=== PATIENT | female | born 1960 | race Caucasian/White ===

== ENCOUNTER → 2020-02-07 13:05 | Outpatient (CLI) | payer OTHER, SELFPAY ==
[2020-02-07 14:39] LABS: Add Manual Diff / Slide Review NO; Basophils Absolute Auto 0 /uL (0-100); Basophils Percent Auto 0.6 % (0-2); Eosinophils Absolute Auto 100 /uL (0-450); Eosinophils Percent Auto 1.9 % (2-4); Hemoglobin 15.3 g/dL (12.0-16.0); Lymphocytes Absolute Auto 1800 /uL (1100-4500); Lymphocytes Percent Auto 37.4 % (25-40); Mean Corpuscular HGB Conc 33.3 % (30-36); Mean Corpuscular Hemoglobin 32.3 PG (26-34); Mean Corpuscular Volume 96.9 fL (80-100); Monocytes Absolute Auto 500 /uL (0-900); Monocytes Percent Auto 9.8 % (3-14); Neutrophils Absolute Auto 2400 /uL (1500-7000); Neutrophils Percent Auto 50.3 % (50-75); Platelet Count 203 X10^3/uL (150-400); Red Blood Cell Count 4.74 X10^6/uL (4.0-5.2); Red Cell Distribution Width 12.4 % (11.6-14.8); White Blood Cell Count 4.8 X10^3/uL (4.5-11.0)
[2020-02-07 14:50] LABS: Blood Urea Nitrogen 10 mg/dL (7-17); Calcium 9.3 mg/dL (8.4-10.2); Carbon Dioxide 36 mmol/L (22-32); Chloride 104 mmol/L (98-107); Estimated Glomerular Filt Rate > 60.0 mL/min (>60); Glucose 101 mg/dL (70-100); HEMOLYSIS < 15 (0-50); Potassium 4.9 mmol/L (3.4-5.1); Sodium 141 mmol/L (137-145)
== END ==
PROVIDERS: Referring Provider Orthopaedic Surgery; Visit Provider Orthopaedic Surgery
DX: Z01.812 Encounter for preprocedural laboratory examination (principal); Z01.818 Encounter for other preprocedural examination
CPT/HCPCS: 36415; 80048; 85025; 93005; 93010

== ENCOUNTER → 2020-02-17 13:05 | Outpatient (CLI) | payer OTHER, SELFPAY ==
[2020-02-17 16:23] LABS: COVID19 -Nasal RAPID POSITIVE (Negative)
== END ==
PROVIDERS: PCP Family Medicine; Visit Provider Nurse Practitioner
DX: U07.1 COVID-19 (principal)
CPT/HCPCS: 87635

== ENCOUNTER → 2020-03-09 11:03 | Outpatient (CLI) | payer OTHER, SELFPAY ==
[2020-03-09 13:08] LABS: COVID19 -Nasal RAPID Negative (Negative)
== END ==
PROVIDERS: PCP Family Medicine; Visit Provider Physician Assistant
DX: Z20.822 Contact with and (suspected) exposure to COVID-19 (principal)
CPT/HCPCS: 87635

== ENCOUNTER 2020-03-10 05:53 | Inpatient (IN) | payer OTHER, SELFPAY ==
[2020-02-11 13:41] VITALS: BMI 33.3
[2020-03-10] VITALS (17 sets, daily range): BP systolic 93–154; BP diastolic 49–120; PULSE 69–94; RESP 8–18; TEMP 36.1–36.8; O2SAT 92–97; BMI 35.7
[2020-03-10] MEDS: LACTATED RINGERS 1,000 ML 42 ML IV ×2 (07:14→11:08)
--- NOTE | 2020-03-10 07:23 | PM.PREOP ---
Pre-operative Note COVID-19 COVID-19 status: Negative Result date/Date tested (Pos, Neg/Pending): 03/09/20 Interval Note History & Physical reviewed/Exam performed by Physician: Yes Changes to H&P: No
[2020-03-10] MEDS: CEFAZOLIN 2 GM/100 ML FROZ.PIGGY IV ×3 (07:47→23:40)
--- NOTE | 2020-03-10 08:00 | DI.RAD.S_ITS ---
PROCEDURE: XR LUMBAR SPINE 2-3V INDICATIONS: L4-5 TLIF TECHNIQUE: AP and lateral intraoperative fluoroscopic views of the lumbar spine were acquired. COMPARISON: [facility], MR, MR LUMBAR SPINE WITHOUT CONTRAST, 01/07/2020, 10:58. FINDINGS: AP and lateral intraoperative fluoroscopic images of the lumbar spine were acquired demonstrating postoperative changes from interval posterior spinal fusion of L4 and L5 using bilateral pedicular screws and paraspinal rods fixation. Status post L4-5 discectomy and placement of interbody disc prosthesis. IMPRESSION: Intraoperative fluoroscopic image of the lumbar spine status post discectomy and fusion at L4-5. No gross hardware complications. Dictated by: Sarthak Can M.D. on 03/10/2020 at 9:50 Approved by: Sarthak Can M.D. on 03/10/2020 at 9:54
[2020-03-10] MEDS: THROMBIN (RECOMBINANT) 5,000 UNIT VIAL 5000 UNIT TOP (08:20)
[2020-03-10] MEDS: SODIUM CHLORIDE 0.9% 1,000 ML, GENTAMICIN 80 MG IRR (08:20)
[2020-03-10] MEDS: VANCOMYCIN 1,000 MG VIAL 1000 MG TOP (08:20)
[2020-03-10] MEDS: BUPIVACAINE 0.5% (PF) 4 ML, MORPHINE-PF 4 MG, BUTORPHANOL 1 MG, fentaNYL 100 MCG INJ (08:22)
--- NOTE | 2020-03-10 08:33 | SUR.OPER ---
Prone on spine table, head in foam head support, padded chest and pelvic supports, gel pad at knees, lower legs supported by pillows; nipples, genitalia and toes free of pressure, arms secured on foam padded arm boards at <90 degrees abduction. Tape over blanket at thigh secured to table.
--- NOTE | 2020-03-10 10:09 | P.OP_ITS ---
Operative Date/Time/Diagnoses Date of procedure: 03/10/20 Time of procedure: 10:09 Pre-op diagnosis: Lumbar stenosis with radiculopathy Lumbar scoliosis Post-op diagnosis: same Procedure & Clinicians Procedure: L3-4, L4-5 laminectomies L4-5 TLIF (posterior/posterior interbody fusion) with cage L4, L5 screws Iliac crest bone graft aspirate Use of microscope Placement of epidural catheter Same procedure as scheduled: Yes Indications: [age] year old female with intractable pain from lumbar stenosis.They had failed conservative management and requested operative intervention. Risks and benefits of surgery were discussed and appropriate consents were obtained. Surgeon: Dallas Riggs Window Trimmer: Madonna Pabon Anesthesia Type: General Operative Notes Findings: None Closure Type: primary Specimen(s): none sent Prosthetic devices, grafts, tissues, transplants, or devices: NuVasive MAS Rel ine screws Globus Rise cage Applied: catheter Estimated Blood Loss (mL): 50 Procedure in detail: The patient was brought to the operating room and intubated on the table. A time-out was performed. They were then rolled over to the well- padded Dalton table in the prone position. Preoperative antibiotics were given. The back was prepped and draped in the standard sterile fashion. Using fluoroscopy, a 4 cm longitudinal incision was made to the left of the midline. We used Bovie to come down to and split the lumbodorsal fascia. Using fluoroscopy and monitoring, we then percutaneously placed Jamshidi needles down the pedicles of L4 and L5 on the left side. These were changed out to guidewires and then we tapped and then placed the NuVasive MAS Reline screw shanks. We then opened up the retractors and used Bovie to clear up the posterolateral gutter as well as medially along the lamina to the spinous processes. A bur was used to decorticate the transverse processes. We brought in the microscope. Using a combination of bur and Kerrison rongeurs, a laminectomy was performed from the left side. We cleared over past the midline and carefully depressed the dura until we were able to decompress the opposite side. We cleared out the neural foramen. This completed the laminectomy at L4-5. This was separate and distinct from the TLIF approach as we were decompressing the canal with the traversing L5 and S1 roots as well as the exiting L4 root in the foramen. We then began the TLIF prep. The remainder of the facetectomy was performed on this side at L4-5. We carefully cleaned up the remainder of the foramen until we could easily retract the exiting root as well as clearing medially below the dura and expose the disc space. The disc was prepped with bipolar and then an annulotomy was performed. We performed a diskectomy using a combination of paddles, yuly, pituitaries, and curettes. We distracted the disc using a paddle and locked the retractor in an open position. We then filled the disc space with Osteocel bone graft. We then placed the globus rise cage under fluo roscopy and then filled this in with more bone graft. The distraction on the retractor was released to compress down. This completed the posterior interbody fusion portion of the TLIF at L4-5. We then rotated the retractors and exposed the L3-4 level. We cleared out the lamina. Using bur and Kerrison rongeur, a left-sided laminectomy was performed at L3-4. This was primarily epidural lipomatosis. We cleared out the central canal with all of the exiting L4 through S1 roots as well as cleared up the L3-4 foramen. An epidural catheter was then prepped with 4 mL of 0.5% Marcaine, 1 mg Stadol, 4 mg Duramorph, and 100 mcg of fentanyl and placed in the spinal canal by carefully depressing the dura and advancing it 6 cm cephalad under the remaining lamina without resistance. We then placed the screw heads, rupla, and locked down the set screws. The wound was copiously irrigated. A small stab incision was made over the PSIS. We used a Jamshidi needle to aspirate several mL of bone marrow from the pelvis. This was mixed with the remaining Osteocel and combined with all of the locally harvested bone graft and placed in the posterolateral gutter for the posterior fusion of the TLIF at L4- 5. The muscle fascia was closed. The epidural catheter was then injected without resistance and the catheter was pulled. We then went to the opposite side. Again using fluoroscopy, a 3 cm incision was made and Bovie was used to come down to split the fascia. Using neural monitoring and fluoroscopy, Jamshidi needles were advanced down the pedicles of L4 and L5 on the right side. These were switched over guidewires, tapped, and screws placed. We then placed a rupal and locked the set screws on this side. The wound was irrigated. The fascia was closed. Vancomycin powder was placed in the wounds. The superficial and skin were closed. A sterile dressing was placed. The patient was then rolled over extubated and brought to recovery room without complications. Complications: none Post-operative Condition: stable Disposition: PACU Plan for aftercare: Inpatient. Up with physical therapy.
[2020-03-10] MEDS: LORazepam 2 MG/ML INJ 0.25 MG IV (10:35)
[2020-03-10] MEDS: hydrOXYzine 50 MG/ML INJ 25 MG IM (10:37)
[2020-03-10] MEDS: HYDROMORPHONE 2 MG INJ IV ×3 (10:43→11:02)
[2020-03-10] MEDS: OXYCODONE/ACETAMINOPHEN 5/325 TABLET 1 TAB PO (11:48)
[2020-03-10] MEDS: CELECOXIB 200 MG CAPSULE 400 MG PO (12:19)
[2020-03-10] MEDS: HYDROMORPHONE 0.5 MG INJ IV ×6 (12:20→23:41)
[2020-03-10] MEDS: LACTATED RINGERS 1,000 ML 125 ML IV ×2 (12:22→21:11)
[2020-03-10] MEDS: HYDROCODONE/ACET 5/325 TABLET 2 TAB PO (12:32)
[2020-03-10] MEDS: hydrOXYzine pamoate 25 MG CAPSULE PO ×2 (12:33→15:50)
--- NOTE | 2020-03-10 13:56 | PT.IPTN ---
Current Diagnoses Other forms of scoliosis, lumbar region (03/10/20) Spinal stenosis, lumbar region with neurogenic claudication (03/10/20) Surgery Performed Operation Date: 03/10/20 07:45 Actual Procedures p L34, L45 Laminectomy, L45 instrumented fusion w/bone graft - Dallas Riggs MD Physical Therapy Treatment Note M3 PT-IP Subjective Start: 03/10/20 14:29 Freq: NEEDED Status: Active Protocol: Document 03/10/20 13:56 AB (Rec: 03/10/20 14:32 AB [id number]) Subjective Physical Therapy Visit Type Type Patient Refusal Notes Checked on pt but pt refused PT with c/o increase back pain . stated that she is wanting to rest since she just had surgery. PLOF and home environment info obtained from pt. will f/u tomorrow.
--- NOTE | 2020-03-10 15:09 | PC.NURSE ---
Pt reports severe pain to back, repositioning frequently, IV and PO pain meds; recommend changing to [place] bed; c/m/s to BLLEs present with improved mild numbness from prior to back surgery; RA=97%, IS 1500; Coversite drsg to lower back and gauze/tegaderm to iliac crest c/d/i; Pantoja draining to gravity; pt using call light, as needed
[2020-03-10] MEDS: OXYCODONE IR 10 MG TABLET PO ×2 (16:28→22:38)
[2020-03-10] MEDS: DOCUSATE 100 MG CAPSULE PO (21:07)
[2020-03-10] MEDS: GABAPENTIN 300 MG CAPSULE PO (21:07)
[2020-03-10] MEDS: CELECOXIB 200 MG CAPSULE PO (21:08)
[2020-03-10] MEDS: SENNOSIDES 8.6 MG TABLET 17.2 MG PO (21:08)
--- NOTE | 2020-03-10 21:19 | PC.NURSE ---
I was notified by the [facility] [place] [place] that the patient in 218 was upset and requesting to speak to the Director Of Consulting Services. I went down to the patients room, she appeared upset, RN Leydi was administering medication. Following which, I introduced myself. The patient was anxious and almost tearful. She stated that she did not want to speak to me, you work on this shift, I will wait and talk to someone tomorrow. I acknowledge that she appeared upset, and asked if there was anything I could do to make her more comfortable. The patient states I am better than I have been the last half hour. She again stated that she would speak to someone tomorrow. I attempted an additional time in the evening to speak to the patient, but on follow up, she was on the phone. The third time I check in with the patient she was agreeable to speak with me. She states that her IV was beeping, she put on her call light and approximately 10 minutes passed before her light was answered. The IV pump was re-initiated. The patient states that 10 minutes later it was beeping again. She says no one came to answer her light, she states that she began calling out and could hear people in the hallway, but no one responded. The patient states that she had requested her door to be closed and four all bed rails to be in the raised position. She states she then tried to move around in bed, in an effort to reach her phone, she called the bending press operator and was transferred to the main nurses station asking for help. This had been the message I received from the [facility] [place] [place], and the patient was clearly upset by the events. I made an effort to reassure the patient. I discussed with her our effort to provide excellent patient care and that the events she described were not to an acceptable level. The patient was fearful that now that she had spoken with me, the girls will be afraid to come back. I reassured her this was not the case. I assisted her with comfort measures. Confirmed that she did wish to continue to have all bed rails in place and the door closed. She stated that she did. Discussed these events and patient concerns with staff.
[2020-03-11] VITALS (9 sets, daily range): BP systolic 97–120; BP diastolic 52–75; PULSE 72–94; RESP 16–17; TEMP 36.1–36.7; O2SAT 93–98
[2020-03-11] MEDS: HYDROCODONE/ACET 5/325 TABLET 2 TAB PO ×2 (01:23→05:31)
[2020-03-11] MEDS: LEVOTHYROXINE 100 MCG TABLET PO (05:31)
[2020-03-11] MEDS: LACTATED RINGERS 1,000 ML 125 ML IV (05:33)
[2020-03-11 05:38] LABS: Hematocrit 34.6 % (36-46); Hemoglobin 11.5 g/dL (12.0-16.0)
--- NOTE | 2020-03-11 07:37 | PM.PNPO.1 ---
Subjective Subjective Date Patient Seen: 03/11/20 Time Patient Seen: 07:37 Interval history: Rough night with pain. She required oral as well as IV supplementation for pain control. She did get out of bed with physical therapy yesterday. Exam Vital Signs (past 8 hours): - 03/11/20 00:00 03/11/20 06:00 Temperature 97.0 F L 97.0 F L Pulse Rate 94 H 87 Respiratory Rate 16 16 Blood Pressure 102/52 L 120/70 Pulse Oximetry 96 96 Oxygen Delivery Method Room Air Oxygen Flow Rate 0 Const Orientation: alert and oriented x3 Back/Spine/Pelvis Other: CDI. 5/5 motor both lower extremities Objective Labs Result Diagrams: 03/11/20 05:24 Labs: Laboratory Results - last 24 hr 03/11/20 05:24 Hgb 11.5 L Hct 34.6 L PFSH Medical History (Updated 02/11/20 @ 14:16 by Tanya Nino RN) Anxiety Arthritis Brain aneurysm (04/2013) Diverticulitis (~2001) Diverticulosis Easy bruisability HLD (hyperlipidemia) HTN (hypertension) Hypothyroid Lumbar stenosis with neurogenic claudication Scoliosis Surgical History (Updated 02/11/20 @ 14:17 by Tanya Nino RN) History of esophagogastroduodenoscopy (EGD) History of hysterectomy History of surgery (04/2013) Hx of appendectomy Hx of breast biopsy Social History household members: spouse Smoking Status: Former smoker alcohol intake: current Assessment & Plan Post-op Postoperative Procedures: Procedures Operation Date: 03/10/20 07:45 Actual Procedures Side Surgeon p L34, L45 Laminectomy, L45 instrumented fusion w/bone graft Dallas Riggs MD Pain control issues will be slowing her down but will continue mobilize her with physical therapy. I anticipate her staying 1-2 more days before she is independent enough to go home. Quality VTE Deep Vein Thrombosis/Pulmonary Embolism Present on Admission: No
[2020-03-11] MEDS: ATORVASTATIN 20 MG TABLET 40 MG PO (08:45)
[2020-03-11] MEDS: METOPROLOL ER 50 MG TABLET 200 MG PO (08:45)
[2020-03-11] MEDS: CELECOXIB 200 MG CAPSULE PO ×2 (08:45→21:58)
[2020-03-11] MEDS: ASPIRIN EC 81 MG TABLET PO (08:45)
[2020-03-11] MEDS: DOCUSATE 100 MG CAPSULE PO ×2 (08:45→21:58)
[2020-03-11] MEDS: lisinopriL 10 MG TABLET PO (08:45)
[2020-03-11] MEDS: OXYCODONE IR 10 MG TABLET PO ×5 (09:10→21:57)
--- NOTE | 2020-03-11 10:45 | PT.IIE ---
Current Diagnoses Other forms of scoliosis, lumbar region (03/10/20) Spinal stenosis, lumbar region with neurogenic claudication (03/10/20) Surgery Performed Operation Date: 03/10/20 07:45 Actual Procedures p L34, L45 Laminectomy, L45 instrumented fusion w/bone graft - Dallas Riggs MD Surgical History (Last Updated 02/11/20 @ 14:17 by Tanya Nino, RN) History of esophagogastroduodenoscopy (EGD) History of hysterectomy History of surgery (04/2013) Hx of appendectomy Hx of breast biopsy Medical History (Last Updated 02/11/20 @ 14:16 by Tanya Nino RN) Anxiety Arthritis Brain aneurysm (04/2013) Diverticulitis (~2001) Diverticulosis Easy bruisability HLD (hyperlipidemia) HTN (hypertension) Hypothyroid Lumbar stenosis with neurogenic claudication Scoliosis Physical Therapy Inpatient Evaluation/Re-Eval M1 PT/OT-IP Prior Functional Status Start: 03/10/20 14:29 Freq: NEEDED Status: Active Protocol: Document 03/11/20 10:45 AB (Rec: 03/11/20 12:06 AB [email or web address]) Medical Review Prior Functional Status Medical History Reviewed Yes Communication able to make needs known Mobility and Gait pt stated that she is independent with all mobilities and ambulation without AD Social History Household Members spouse Living Arrangements House Number of Floors (Floors) One Floor Number of Stairs To Enter/Railing? 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 [facility] stated that her spouse is a PT aide M2 PT-IP Current Condition Start: 03/10/20 14:29 Freq: NEEDED Status: Active Protocol: Document 03/11/20 10:45 AB (Rec: 03/11/20 12:06 AB [email or web address]) Physical Therapy Current Condition Current Condition Evaluation Date 03/11/20 Treatment Diagnosis s/p L4-5 TLIF; L3-4 lami; difficulty in walking Onset Date 03/10/20 Precautions Lumbar Precautions Log Roll,No Twisting,Limit Bending,Lifting Restriction of 10 lbs,Gait Belt above Incisional Area M3 PT-IP Subjective Start: 03/10/20 14:29 Freq: NEEDED Status: Active Protocol: Document 03/11/20 10:45 AB (Rec: 03/11/20 12:06 AB [email or web address]) Subjective Physical Therapy Visit Type Type Initial Evaluation Visit Start Time 10:45 Visit Stop Time 11:13 Total Visit Minutes 28 Number of SINTERING PLANT SUPERVISOR Visits 0 Physical Therapy Visit Comments Patient Comments pt c/o increase back pain but is agreeable to do PT Therapy Pain Assessment Pain When Pain Assessed At Rest Pain Present Pain Present Pain Reported Location back Scale Used pain scale not stated Pain Management Techniques Apply Cold,Distraction, Modification of Treatment,Re- positioning,Timing of Activity with Medications M4 PT-IP Mobility and Gait Start: 03/10/20 14:29 Freq: NEEDED Status: Active Protocol: Document 03/11/20 10:45 AB (Rec: 03/11/20 12:06 [email or web address]) PT-Bed Mobility Assessment Rolling Type of Rolling Log Rolling Level of Assist Maximal Assistance Supine to Sit Supine to Sit Maximum Assistance,1 Person Assistance PT-Transfer Assessment Sit to and From Stand Sit to and from Stand Moderate Assistance,1 Person Assistance,Use of Upper Extremities Equipment Transfer Assistive Device Gait Belt,Front Wheeled Walker Orthotic/Prosthetic Devices or Brace: No Transfers Transfer Destination Chair Transfer Technique ambulated using FWW Transfer Ability Level of Assist Moderate Assistance,1 Person Assistance,Use of Upper Extremities Comments Mobility Comments reviewed back precautions with pt and log roll bed mobility. completed supine to sit max A and max cues for log roll. pt was able to maintain sitting on EOB SBA. completed sit to stand mod A and cues. ambulated using FWW towards the chair mod A and cues. agreed to sit up on the chair. positioned on the chair. call light and table placed within reach. Gait Assessment Gait Gait Assistance Required: Moderate Assistance Distance (Feet) 12 Able to Maintain Weight Bearing Status Yes During Gait Assistive Devices Assistive Device Gait Belt,Front Wheeled Walker Orthotic/Prosthetic Devices or Brace: No Gait Deviations General Gait Pattern Antalgic,Decreased Stride Length,Decreased Feet Clearance,Step-to Gait Factors Limiting Gait Function Factors Limiting Gait Function Decreased Activity Tolerance, Decreased Strength,Limited Range of Motion,Pain,Poor Balance,Poor Safety Awareness PT-Balance Assessment Sitting Balance and Reactions Static Sitting Balance Ability Good Dynamic Sitting Balance Ability Good Standing Balance and Reactions Static Standing Balance Ability Fair Dynamic Standing Balance Ability Fair Device Used FWW M5 PT-IP Objective Assessments Start: 03/10/20 14:29 Freq: NEEDED Status: Active Protocol: Document 03/11/20 10:45 AB (Rec: 03/11/20 12:06 AB [email or web address]) Orientation Orientation/Cognition Level of Alertness Alert Orientation Name,Place,Situation Language Function Ability No Deficits Noted Safety Awareness Decreased Safety Awareness Memory Description Short Term Impaired Gross Range of Motion Lower Extremity ROM Assessment Within Functional Limits Strength Lower Extremity Strength Assessment Bilaterally Impaired Hip 3+/5 Knee 4-/5 Coordination Assessment Gross Coordination Gross Coordination WNL Sensation Assessment Sensation Gross Sensation WNL Muscle Tone Muscle Tone WNL Yes M6 PT-IP Treatment Start: 03/10/20 14:29 Freq: NEEDED Status: Active Protocol: Document 03/11/20 10:45 AB (Rec: 03/11/20 12:06 AB [email or web address]) Physical Therapy Treatment Education Education Provided Precautions,Weight Bearing Status,Post-Op Packet,Safety M7 PT-IP Assessment and Plan Start: 03/10/20 14:29 Freq: NEEDED Status: Active Protocol: Document 03/11/20 10:45 AB (Rec: 03/11/20 12:06 AB [email or web address]) PT Summary Assessment and Plan Potential Rehabilitation Potential Fair Status of Condition at Evaluation Evolving Summary Impairments Pain,ROM,Strength,Balance, Coordination,Sensation,Tone, Cognition,Bed Mobility, Transfers,Gait,Activity Tolerance Assessment Summary pt requiring mod to max A with mobility using FWW and c/o increase pain affecting function and activity tolerance. d/c plan depending on progress and will conduct caregiver training when appropriate as well as stair climbing training. will continue to assess. Goals Bed Mobility Goal Standby Assistance Transfer Goal Standby Assistance,Front Wheeled Walker Gait Goal Standby Assistance,Front Wheel Walker Gait Distance 150 Other Goals up/down 3 steps using SPC/DETAIL TECHNICIAN CGA Days to Meet Goals 5 Frequency of Treatment Frequency Of Treatment Twice a Day Treatment Plan Physical Therapy Treatment Plan Bed Mobility Training,Transfer Training,Gait Training, Therapeutic Exercise,Balance Retraining,Post Op Education, Discharge Planning,Hot or Cold Pack,Neuromuscular Re-ed, Coordination Retraining,Manual Therapy Other Recommendations and Next Treatment ambulation, caregiver training Focus when appropriate Recommendations To Nursing Amount of Assist Needed 1 Person Assist Discharge Recommendations PT Discharge Recommendations Home with 19/09 Assist Transportation Needs at Discharge Private Vehicle,Wheelchair/ Cabulance
--- NOTE | 2020-03-11 11:46 | PC.NURSE ---
0942- Patient is a&ox3, she states that she is having 6/10 pain, given 10mg of oxycodone and seems to be helping her discomfort. Incision and dressing cdi. Patient denies any numbness or tingling of the extremities and is tolerating her breakfast well. She states that she mostly has pain when positioning and moving around in bed. Resting now.
[2020-03-11] MEDS: hydrOXYzine pamoate 25 MG CAPSULE PO ×2 (13:14→18:33)
--- NOTE | 2020-03-11 13:28 | CM.DANOTE ---
DCP/Assessment: Reviewed chart. Patient is a 60yr old female admitted to [facility] for lami performed on 03-10-[address] Riggs. PCP listed is Jeannette Leung. Primary payor is 1)Healthcare Management. Met with patient and spouse/Shady at bedside explained CM/SW role. Patient alert and oriented in bed at time of visit. Patient reports that she has had a lot of pain. Patient unclear on d/c date. Patient reports that she is primarily I with all ADL's. Patient employed at [employer]. Patient hopes to return to work in the next 4-6 weeks. Spouse also employed but reports that he will be home until Monday03-16-20. Patient plans on discharging home. Patient has walker at home if needed. Patient hopes that current pain and ambulation will be much easier prior to d/c. Notified patient and spouse that CM team would continue to follow for d/c planning needs. P: Home when stable. Continue to follow for needs. AYAD Gil Discharge Planning/Care Management CM Discharge Assessment Start: 03/11/20 13:26 Freq: Status: Active Protocol: Document 03/11/20 13:26 KJS (Rec: 03/11/20 13:28 KJ [id number]) Discharge Planning Assessment Assigned Boot Maker AYAD Gil Contact Information Shady Sandoval (spouse) # Advance Directives? No History Provided By Patient,Significant Other, Medical Record Prior Living Arrangements House Household Members spouse Type of transporation used prior to Drives own vehicle admit Independent with ADL's Yes Is patient alert and oriented? Yes DME Already Rented / Owned FWW / Walker Barriers to Discharge No Discharge Plan Home Transportation Arrangement Family to provide transport. Whiteboard Updated in Patient Room with Yes name and ext. # of Boot Maker Review Status In Process Next Review Type Continued Stay Review Pre-Anesthesia Assessment Start: 02/11/20 13:41 Freq: Status: Complete Protocol: Document 02/11/20 13:41 CAB (Rec: 02/11/20 14:32 CAB [id number]) Pre-Anesthesia Assessment Patient Information Reviewed Via Phone Assessment Assessment Completed With Patient H&P Completed Within 30 Days Yes Diagnostic Results BMP/CMP,CBC,EKG Comment Labs/EKG @ 02/07/20, COVID screen @ 02/15/20 Primary Care Provider Jeannette Leung Seen Specialist in Last 12 Months Yes Specialist Seen Orthopedist,Other Comment GI for EGD Primary Language Malaysian Hat Maker Required No Height 165.1 cm Weight 90.718 kg Body Mass Index (BMI) 33.3 Visual Assist Glasses Dentition Type Teeth, Natural Present,Full- Upper Barriers to Learning None Hx Anesthesia Reactions No Hx Family Anesthesia Reaction No Hx Malignant Hyperthermia No Hx Blood Transfusions No Anesthesia Review Requested No alcohol intake current Alcohol Intake Frequency Other: Occasional Smoking Status Former smoker Tobacco type cigarettes how long ago did patient quit smoking 05/20/15 Substance Use Type does not use Pain Present Pain Reported Musculoskeletal Symptoms Back Pain,Difficulty Walking, Muscle Weakness,Radiating Pain into Limb History of Falling (Recent or History of No ) Patient is completely paralyzed or No completely immobile Mental Status Oriented to own ability Is patient on oxygen? No Does patient have PAUL/SOB No Hx Sleep Apnea No Currently Taking a Beta Ruben Yes: Metoprolol Can You Climb a Flight of Stairs Without No SOB Hx Chest Pain No Hx SOB Yes Hx Syncope or Dizziness No Anti-Coagulant Therapy No Has a Assistant Director Of Nursing No Cardiac Testing No Hx Pacemaker/ICD No Pacemaker Rep Required? 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 Marital Status Lives With spouse Prior Living Arrangements House Number of Floors (Floors) One Floor Support System Spouse Does the Patient Have Assistance After Yes Surgery Patient Discharge Plan Description Return Home Comment Pt advised a couple day length of stay per surgeon Feels Safe in Current Environment Yes Been Physically Hurt or Threatened By a No Person in Current Environment Do you have thoughts of harming yourself None or others? Are you currently considering suicide? No Do you have a plan to hurt yourself or No Plan others? Do You Have Any Spiritual Beliefs That No May Affect Your HC Choices? Do You Have Any Cultural Practices That No May Affect Your HC Choices? Comment Alevism Who Can We Speak to About Patient's Care Family, friends Identifying Code for Release of Patient Declines to issue Information Health Care Proxy/Next of Kin Shady () Health Care Proxy Emergency Contact Name Shady () Emergency Contact Advance Directives? No Power of Candy Maker No PAC Instructions Do not shave/clip surgical site,Durable medical equipment ,Medications to take/avoid, Nasal antibiotic,No ETOH/ petroleum product on skin DOS, NPO,Pre-surgical wash,Sensory aids,Sturdy shoes/comfortable clothes,Do not bring valuables and remove jewelry
--- NOTE | 2020-03-11 14:12 | OT.IPNOTE ---
Pt refused OT eval at this time.
--- NOTE | 2020-03-11 14:39 | PT-IP ANOTE ---
Checked on pt and refused PT. stated that she just got back to bed and is tired and wants to rest. stated that she even sent her spouse home because she just wants to rest. informed pt regarding caregiver training and pt stated that her spouse is a braider setter and knows what to do. also stated that her spouse works tomorrow and will not be able to come in for training.
[2020-03-11] MEDS: GABAPENTIN 300 MG CAPSULE PO (21:58)
[2020-03-11] MEDS: SENNOSIDES 8.6 MG TABLET 17.2 MG PO (21:58)
[2020-03-11] MEDS: SODIUM CHLORIDE 0.9% FLUSH 10 ML IV (21:58)
[2020-03-12] VITALS (9 sets, daily range): BP systolic 99–125; BP diastolic 53–76; PULSE 68–80; RESP 14–17; TEMP 36.2–37; O2SAT 95–99
[2020-03-12] MEDS: OXYCODONE IR 10 MG TABLET PO ×7 (01:24→22:57)
[2020-03-12] MEDS: LEVOTHYROXINE 100 MCG TABLET PO (06:17)
--- NOTE | 2020-03-12 06:43 | PC.NURSE ---
Pt stable, pain barely being controlled by medication, /10 by the end of the q3 PRN oxy 10 mg administrations. Neuro checks +, +CMS, limited ROM d/t pain and surgical intervention
--- NOTE | 2020-03-12 07:19 | P.PN_ITS ---
Subjective Subjective Date Patient Seen: 03/12/20 Time Patient Seen: 07:19 Interval history: Still having a rough time with pain control. Pain is about a 5 at rest and much worse with moving. She did get up yesterday and walked around the room and got in and out of a chair with PT assistance. Exam Vital Signs (past 8 hours): - 03/11/20 23:55 03/12/20 04:51 Temperature 97.2 F L 97.2 F L Pulse Rate 73 68 Respiratory Rate 16 16 Blood Pressure 106/66 115/56 L Pulse Oximetry 93 99 Oxygen Delivery Method Room Air Oxygen Flow Rate 0 Const Orientation: alert and oriented x3 Back/Spine/Pelvis Other: CDI. 5/5 motor both lower extremities. Objective Labs Result Diagrams: 03/11/20 05:24 [facility] Medical History (Updated 02/11/20 @ 14:16 by Tanya Nino RN) Anxiety Arthritis Brain aneurysm (04/2013) Diverticulitis (~2001) Diverticulosis Easy bruisability HLD (hyperlipidemia) HTN (hypertension) Hypothyroid Lumbar stenosis with neurogenic claudication Scoliosis Surgical History (Updated 02/11/20 @ 14:17 by Tanya Nino RN) History of esophagogastroduodenoscopy (EGD) History of hysterectomy History of surgery (04/2013) Hx of appendectomy Hx of breast biopsy Social History household members: spouse Smoking Status: Former smoker alcohol intake: current Assessment & Plan Post-op Postoperative Procedures: Procedures Operation Date: 03/10/20 07:45 Actual Procedures Side Surgeon p L34, L45 Laminectomy, L45 instrumented fusion w/bone graft Dallas Riggs MD She is slowly progressing. I am going to add some Valium to see if that helps with muscle spasms. Anticipate discharge probably tomorrow. Quality VTE Deep Vein Thrombosis/Pulmonary Embolism Present on Admission: No
[2020-03-12] MEDS: lisinopriL 10 MG TABLET PO (08:52)
[2020-03-12] MEDS: CELECOXIB 200 MG CAPSULE PO ×2 (08:52→21:20)
[2020-03-12] MEDS: diazePAM 5 MG TABLET PO ×3 (08:52→19:44)
[2020-03-12] MEDS: ATORVASTATIN 20 MG TABLET 40 MG PO (08:52)
[2020-03-12] MEDS: DOCUSATE 100 MG CAPSULE PO ×2 (08:53→21:20)
[2020-03-12] MEDS: METOPROLOL ER 50 MG TABLET 200 MG PO (08:53)
[2020-03-12] MEDS: SODIUM CHLORIDE 0.9% FLUSH 10 ML IV ×2 (08:54→21:21)
[2020-03-12] MEDS: ASPIRIN EC 81 MG TABLET PO (08:54)
--- NOTE | 2020-03-12 10:04 | PT.IPTN ---
Current Diagnoses Other forms of scoliosis, lumbar region (03/10/20) Spinal stenosis, lumbar region with neurogenic claudication (03/10/20) Surgery Performed Operation Date: 03/10/20 07:45 Actual Procedures p L34, L45 Laminectomy, L45 instrumented fusion w/bone graft - Dallas Riggs MD Physical Therapy Treatment Note M2 PT-IP Current Condition Start: 03/10/20 14:29 Freq: NEEDED Status: Active Protocol: Document 03/11/20 10:45 AB (Rec: 03/11/20 12:06 AB [id number]) Physical Therapy Current Condition Current Condition Evaluation Date 03/11/20 Treatment Diagnosis s/p L4-5 TLIF; L3-4 lami; difficulty in walking Onset Date 03/10/20 Precautions Lumbar Precautions Log Roll,No Twisting,Limit Bending,Lifting Restriction of 10 lbs,Gait Belt above Incisional Area M3 PT-IP Subjective Start: 03/10/20 14:29 Freq: NEEDED Status: Active Protocol: Document 03/12/20 10:04 AB (Rec: 03/12/20 11:11 AB [id number]) Subjective Physical Therapy Visit Type Type Treatment Note Visit Start Time 10:04 Visit Stop Time 10:31 Total Visit Minutes 27 Number of MOBILE LAB TECHNICIAN Visits 0 Physical Therapy Visit Comments Patient Comments pt initially refuse PT. checked back on pt after ~ 1hour and agreed to do some PT . Therapy Pain Assessment Pain When Pain Assessed At Rest Pain Present Pain Present Pain Reported Location back Intensity 4 Scale Used Numeric (0 - 10) Pain Management Techniques Modification of Treatment,Re- positioning,Timing of Activity with Medications M4 PT-IP Mobility and Gait Start: 03/10/20 14:29 Freq: NEEDED Status: Active Protocol: Document 03/12/20 10:04 AB (Rec: 03/12/20 11:11 AB [id number]) PT-Bed Mobility Assessment Supine to Sit Supine to Sit Standby Assistance,Bedrails Sit to Supine Sit to Supine Minimal Assistance PT-Transfer Assessment Sit to and From Stand Sit to and from Stand Contact Guard Assistance Equipment Transfer Assistive Device Gait Belt,Front Wheeled Walker Orthotic/Prosthetic Devices or Brace: No Transfers Transfer Destination Toilet Transfer Technique ambulated using FWW Transfer Ability Level of Assist Standby Assistance Comments Mobility Comments completed bed mobility supine to sit SBA and cues and used bed rail to assist. completed sit to stand CGA and ambulated to the toilet ~ 20 ft using FWW CGA. completed sit to stand from the toilet SBA using grab bar and ambulated back to bed. pt wanted to go back to bed. completed sit to supine min A for LE elevation. positioned in bed. Left pt with nurse for incision dressing management. Gait Assessment Gait Gait Assistance Required: Standby Assistance Distance (Feet) 20 Able to Maintain Weight Bearing Status Yes During Gait Assistive Devices Assistive Device Gait Belt,Front Wheeled Walker Orthotic/Prosthetic Devices or Brace: No Gait Deviations General Gait Pattern Antalgic,Decreased Stride Length,Decreased Feet Clearance Factors Limiting Gait Function Factors Limiting Gait Function Decreased Activity Tolerance, Decreased Strength,Difficulty Following Directions,Limited Range of Motion,Pain,Poor Balance,Poor Safety Awareness M5 PT-IP Objective Assessments Start: 03/10/20 14:29 Freq: NEEDED Status: Active Protocol: Document 03/11/20 10:45 AB (Rec: 03/11/20 12:06 AB [id number]) Orientation Orientation/Cognition Level of Alertness Alert Orientation Name,Place,Situation Language Function Ability No Deficits Noted Safety Awareness Decreased Safety Awareness Memory Description Short Term Impaired Gross Range of Motion Lower Extremity ROM Assessment Within Functional Limits Strength Lower Extremity Strength Assessment Bilaterally Impaired Hip 3+/5 Knee 4-/5 Coordination Assessment Gross Coordination Gross Coordination WNL Sensation Assessment Sensation Gross Sensation WNL Muscle Tone Muscle Tone WNL Yes M6 PT-IP Treatment Start: 03/10/20 14:29 Freq: NEEDED Status: Active Protocol: Document 03/12/20 10:04 AB (Rec: 03/12/20 11:11 AB [id number]) Physical Therapy Treatment Education Education Provided Precautions,Safety M7 PT-IP Assessment and Plan Start: 03/10/20 14:29 Freq: NEEDED Status: Active Protocol: Document 03/12/20 10:04 AB (Rec: 03/12/20 11:11 AB [id number]) PT Summary Assessment and Plan Potential Rehabilitation Potential Fair Summary Impairments Pain,ROM,Strength,Balance, Cognition,Bed Mobility, Transfers,Gait,Activity Tolerance Progress Towards Goals Slow Progress due to Pain,Slow Progress due to Activity Tolerance Assessment Summary pt requiring CGA to min A with mobility and uses FWW for ambulation. pt has decrease activity tolerance with c/o increase pain with mobility. pt stated that spouse is working today and will not be able to come in for caregiver training. will continue to assess progress. Goals Bed Mobility Goal Standby Assistance Transfer Goal Standby Assistance,Front Wheeled Walker Gait Goal Standby Assistance,Front Wheel Walker Gait Distance 150 Other Goals up/down 3 steps using SPC/HIGH SCHOOL MUSIC INSTRUCTOR CGA Days to Meet Goals 5 Frequency of Treatment Frequency Of Treatment Twice a Day Treatment Plan Physical Therapy Treatment Plan Bed Mobility Training,Transfer Training,Gait Training, Therapeutic Exercise,Balance Retraining,Post Op Education, Discharge Planning,Hot or Cold Pack,Neuromuscular Re-ed, Coordination Retraining,Manual Therapy Other Recommendations and Next Treatment ambulation, caregiver training Focus when appropriate Recommendations To Nursing Amount of Assist Needed 1 Person Assist Discharge Recommendations PT Discharge Recommendations Home with 19/09 Assist,Home Health Transportation Needs at Discharge Private Vehicle,Wheelchair/ Cabulance
--- NOTE | 2020-03-12 12:23 | OT.IP.EVAL ---
Current Diagnoses Other forms of scoliosis, lumbar region (03/10/20) Spinal stenosis, lumbar region with neurogenic claudication (03/10/20) Surgery Performed Operation Date: 03/10/20 07:45 Actual Procedures p L34, L45 Laminectomy, L45 instrumented fusion w/bone graft - Dallas Riggs MD Past Medical History (Last Updated 02/11/20 @ 14:16 by Tanya Nino, RN) Anxiety Arthritis Brain aneurysm (04/2013) Diverticulitis (~2001) Diverticulosis Easy bruisability HLD (hyperlipidemia) HTN (hypertension) Hypothyroid Lumbar stenosis with neurogenic claudication Scoliosis Surgical History (Last Updated 02/11/20 @ 14:17 by Tanya Nino RN) History of esophagogastroduodenoscopy (EGD) History of hysterectomy History of surgery (04/2013) Hx of appendectomy Hx of breast biopsy Occupational Therapy Inpatient Evaluation/Re-Eval M1 PT/OT-IP Prior Functional Status Start: 03/12/20 14:45 Freq: NEEDED Status: Active Protocol: Document 03/12/20 14:45 [facility] (Rec: 03/12/20 15:20 [facility] [id number]) Medical Review Prior Functional Status Medical History Reviewed Yes Communication able to make needs known Mobility and Gait pt stated that she is independent with all mobilities and ambulation without AD Activities of Daily Living and IADL's Pt states able to do all Adl and IADL's prior to surgery but just harder to do. Prior Functional Level (Other details) Pt states her looking to take days off if needed. Social History Household Members spouse Living Arrangements House Number of Floors (Floors) One Floor Number of Stairs To Enter/Railing? 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 [employer] stated that her spouse is a PT aide M2 OT-IP Current Condition Start: 03/12/20 14:45 Freq: Status: Active Protocol: Document 03/12/20 14:45 [facility] (Rec: 03/12/20 15:20 [facility] [id number]) Occupational Therapy Current Condition Current Condition Evaluation Date 03/12/20 Treatment Diagnosis S/p L4-5 TLIF Diagnosis Onset Date 03/10/20 Post Operative Precautions Lumbar Precautions Log Roll,No Twisting,Limit Bending,Lifting Restriction of 10 lbs,Gait Belt above Incisional Area M3 OT- IP Subjective and Pain Start: 03/12/20 14:45 Freq: Status: Active Protocol: Document 03/12/20 14:45 [facility] (Rec: 03/12/20 15:20 [facility] [id number]) OT- Subjective Occupational Therapy Visit Type Type Initial Evaluation Visit Start Time 11:46 Visit Stop Time 12:23 Total Visit Minutes 37 Occupational Therapy Visit Comments Patient Comments Pt agreed to get up for to the recliner. Patient/Caregiver Goals To go home. OT Pain Assessment Pain When Pain Assessed At Rest Pain Present Pain Present Denied Pain M4 OT- IP ADL's Start: 03/12/20 14:45 Freq: Status: Active Protocol: Document 03/12/20 14:45 [facility] (Rec: 03/12/20 15:20 [facility] [id number]) OT [id number] Comments OT Self-Feeding Comments Not at meal time. OT ADL-Grooming General Evaluation Grooming Ability Standby Assistance Areas Needing Assistance Retrieving/Set-up of Grooming Items Comments OT Grooming Comments Pt able to do while sitting from the recliner. OT ADL-Oral Care Comments Oral Care Comments Educated best to spit into a cup to best follow her back precautions. OT ADL-Dressing General Eval Lower Body Dressing Ability Maximum Assistance Areas Needing Assistance Socks Comments OT Dressing Comments Initiated training for LB dressing equipment needs. Pt states her to borrow a reliability engineer from work. OT ADL-Toileting Comments OT Toileting Comments Pt not having to go. Pt states prior has difficulty to do her hygiene and wiping during toileting needs. Educated pt on toilet paper aid. OT ADL-Bathing Comments OT Bathing Comments Suggested best for to get tub bench for safety for showering needs. M5 OT- IP IADL's Start: 03/12/20 14:45 Freq: Status: Active Protocol: Document 03/12/20 14:45 [facility] (Rec: 03/12/20 15:20 [facility] [id number]) OT-Instrumental Activities of Daily Living Home Safety Awareness Awareness of Need for Assistance at Home Good Awareness Medication Management Medication Management No Deficits Identified Money Management Money Management No Deficits Identified Meal Preparation Meal Preparation Caregiver Provides Assist Machine Packer Machine Packer Caregiver Provides Assist M6 OT- IP Functional Cognition Start: 03/12/20 14:45 Freq: Status: Active Protocol: Document 03/12/20 14:45 [facility] (Rec: 03/12/20 15:20 [facility] [id number]) Cognitive Factors Limiting Selfcare Function Cognitive Ability Level of Alertness Alert Patient Orientation Name,Place,Situation Attention Span Ability Capable of Focused Attention, Capable of Sustained Attention Ability to Follow Commands Able to Follow One Step Commands Safety Awareness Decreased Ability to Apply Precautions,Underestimates Need for Assistance Problem Solving Ability Needs Assist to Identify Solutions Cognitive Comments Cognitive Assessment Comments Pt needing vc for bed mobility for log rolling and to get her legs off first before pushing up with her hands from the bed. OT- Vision and Hearing OT- Hearing Assessment OT- Hearing Assessment WFL M7 OT- IP Mobility and Balance Start: 03/12/20 14:45 Freq: Status: Active Protocol: Document 03/12/20 14:45 [facility] (Rec: 03/12/20 15:20 [facility] [id number]) OT- Bed Mobility Assessment Rolling Type of Rolling Roll to Right Level of Assistance Minimal Assistance Supine to Sit Supine to Sit Assist Moderate Assistance Scooting Scooting to Edge of Bed Minimal Assistance OT-Transfer Assessment Sit to and From Stand Sit to and from Stand Minimal Assistance Transfers Transfer Ability Contact Guard Assistance Technique Transfer Destination Bed,Chair Transfer Technique Stand Step Pivot Devices Transfer Assistive Devices Gait Belt,Front Wheeled Walker OT- Gait Assessment Comments Gait Ability Comments CGA with FWW OT- Balance Assessment Sitting Balance and Reactions Static Sitting Balance Ability Good Dynamic Sitting Balance Ability Fair Standing Balance and Reactions Static Standing Balance Ability Fair M9 OT- IP Assessment and Plan Start: 03/12/20 14:45 Freq: Status: Active Protocol: Document 03/12/20 14:45 [facility] (Rec: 03/12/20 15:20 [facility] [id number]) OT Summary Assessment and Plan Potential Rehabilitation Potential Good Analytic Complexity at Evaluation Low Summary OT Impairments Pain,Balance,Functional Cognition,Functional Mobility, Grooming,Dressing,Toileting, Bathing,Toilet Transfers, Shower Transfers,Activity Tolerance Progress Towards Goals Slow Progress due to Pain,Slow Progress due to Activity Tolerance Goals Grooming Goal Independent Dressing Goal Independent Toileting Goal Independent Bathing Goal Independent Toilet Transfer Goal Independent Shower Transfer Goal Independent Patient/Caregiver Education Goal Demonstrate Post-Op Precautions,Caregiver Independent Assisting Patient Days to Meet Goals 5 Frequency of Treatment Frequency Of Treatment Once a Day Treatment Plan OT Treatment Plan ADL Training,Functional Cognition Training,Functional Mobility,Patient/Family Education,Discharge Planning Other Treatment Recommendations and Next caregiver training Treatment Focus Discharge Recommendations OT Discharge Recommendations Home with Assistance Home Equipment Needs BSC, tub bench, toilet paper aid, LB dressing equipment Transportation Needs at Discharge Private Vehicle
--- NOTE | 2020-03-12 15:18 | PT-IP ANOTE ---
checked on pt and refused PT. stated that she just got back to bed. set up caregiver training with spouse and pt tomorrow at 11 am.
[2020-03-12] MEDS: GABAPENTIN 300 MG CAPSULE PO (21:20)
[2020-03-12] MEDS: SENNOSIDES 8.6 MG TABLET 17.2 MG PO (21:20)
[2020-03-12] MEDS: ACETAMINOPHEN 325 MG TABLET 650 MG PO (23:59)
[2020-03-13] VITALS (8 sets, daily range): BP systolic 97–126; BP diastolic 55–80; PULSE 67–75; RESP 16–20; TEMP 36.3–36.7; O2SAT 94–98
[2020-03-13] MEDS: OXYCODONE IR 5 MG TABLET PO (03:10)
[2020-03-13] MEDS: LEVOTHYROXINE 100 MCG TABLET PO (05:55)
[2020-03-13] MEDS: OXYCODONE IR 10 MG TABLET PO ×5 (06:53→20:26)
--- NOTE | 2020-03-13 07:40 | P.PN_ITS ---
Subjective Subjective Date Patient Seen: 03/13/20 Time Patient Seen: 07:40 Interval history: Her pain level is much better at rest but still difficult with mobility. She is still 1 person assist. She feels unsteady and wobbly. Exam Vital Signs (past 8 hours): - 03/12/20 23:44 03/13/20 03:16 03/13/20 06:51 Temperature 97.4 F L 97.6 F Pulse Rate 79 74 67 Respiratory Rate 17 16 Blood Pressure 99/53 L 97/61 126/80 Pulse Oximetry 95 95 Oxygen Delivery Method Room Air Oxygen Flow Rate 0 Const Orientation: alert and oriented x3 Back/Spine/Pelvis Other: 1 cm dry drainage on top dressing. 5/5 motor both lower extremities. Objective Labs Result Diagrams: 03/11/20 05:24 [facility] Medical History (Updated 02/11/20 @ 14:16 by Tanya Nino RN) Anxiety Arthritis Brain aneurysm (04/2013) Diverticulitis (~2001) Diverticulosis Easy bruisability HLD (hyperlipidemia) HTN (hypertension) Hypothyroid Lumbar stenosis with neurogenic claudication Scoliosis Surgical History (Updated 02/11/20 @ 14:17 by Tanya Nino RN) History of esophagogastroduodenoscopy (EGD) History of hysterectomy History of surgery (04/2013) Hx of appendectomy Hx of breast biopsy Social History household members: spouse Smoking Status: Former smoker alcohol intake: current Assessment & Plan Post-op Postoperative Procedures: Procedures Operation Date: 03/10/20 07:45 Actual Procedures Side Surgeon p L34, L45 Laminectomy, L45 instrumented fusion w/bone graft Dallas Riggs MD she is making slow progress. Continue to mobilize with physical therapy. Anticipate discharge tomorrow at this point. Quality VTE Deep Vein Thrombosis/Pulmonary Embolism Present on Admission: No
[2020-03-13] MEDS: ACETAMINOPHEN 325 MG TABLET 650 MG PO ×3 (07:57→20:26)
[2020-03-13] MEDS: diazePAM 5 MG TABLET PO ×3 (07:58→20:26)
[2020-03-13] MEDS: lisinopriL 10 MG TABLET PO (08:59)
[2020-03-13] MEDS: CELECOXIB 200 MG CAPSULE PO ×2 (08:59→20:26)
[2020-03-13] MEDS: SODIUM CHLORIDE 0.9% FLUSH 10 ML IV ×2 (09:00→20:27)
[2020-03-13] MEDS: METOPROLOL ER 50 MG TABLET 200 MG PO (09:00)
[2020-03-13] MEDS: ATORVASTATIN 20 MG TABLET 40 MG PO (09:00)
[2020-03-13] MEDS: ASPIRIN EC 81 MG TABLET PO (09:00)
[2020-03-13] MEDS: DOCUSATE 100 MG CAPSULE PO ×2 (09:00→20:25)
--- NOTE | 2020-03-13 11:02 | PT.IPTN ---
Current Diagnoses Other forms of scoliosis, lumbar region (03/10/20) Spinal stenosis, lumbar region with neurogenic claudication (03/10/20) Surgery Performed Operation Date: 03/10/20 07:45 Actual Procedures p L34, L45 Laminectomy, L45 instrumented fusion w/bone graft - Dallas Riggs MD Physical Therapy Treatment Note M2 PT-IP Current Condition Start: 03/10/20 14:29 Freq: NEEDED Status: Active Protocol: Document 03/11/20 10:45 AB (Rec: 03/11/20 12:06 AB [id number]) Physical Therapy Current Condition Current Condition Evaluation Date 03/11/20 Treatment Diagnosis s/p L4-5 TLIF; L3-4 lami; difficulty in walking Onset Date 03/10/20 Precautions Lumbar Precautions Log Roll,No Twisting,Limit Bending,Lifting Restriction of 10 lbs,Gait Belt above Incisional Area M3 PT-IP Subjective Start: 03/10/20 14:29 Freq: NEEDED Status: Active Protocol: Document 03/13/20 11:02 AB (Rec: 03/13/20 12:43 AB [email or web address]) Subjective Physical Therapy Visit Type Type Treatment Note Visit Start Time 11:02 Visit Stop Time 11:31 Total Visit Minutes 29 Number of CAPTAIN/AIRLINE PILOT Visits 0 Therapy Pain Assessment Pain When Pain Assessed At Rest Pain Present Pain Present Pain Reported Location back Scale Used pain scale not stated Pain Management Techniques Distraction,Modification of Treatment,Re-positioning, Timing of Activity with Medications M4 PT-IP Mobility and Gait Start: 03/10/20 14:29 Freq: NEEDED Status: Active Protocol: Document 03/13/20 11:02 AB (Rec: 03/13/20 12:43 AB [email or web address]) PT-Bed Mobility Assessment Rolling Type of Rolling Log Rolling Level of Assist Minimal Assistance Supine to Sit Supine to Sit Minimal Assistance Sit to Supine Sit to Supine Moderate Assistance,1 Person Assistance PT-Transfer Assessment Sit to and From Stand Sit to and from Stand Contact Guard Assistance,1 Person Assistance Equipment Transfer Assistive Device Gait Belt,Front Wheeled Walker Orthotic/Prosthetic Devices or Brace: No Transfers Transfer Destination Bed,Chair Transfer Ability Level of Assist Contact Guard Assistance,1 Person Assistance,Use of Upper Extremities Comments Mobility Comments spouse in room with pt for caregiver training. Spouse stated that he is a kennel aide and knows pt' s precautions and knowns how to assist pt. spouse was able demonstrate putting safety belt on and assisting pt with transfers, bed mobility and ambulation using FWW. spouse stated that they only have 2 small steps to enter the house and has a R rail. pt completed up/down steps holding on R rail with B hands with spouse assisting. spouse was able to assist pt safely pt requested to go back to bed . spouse assisted pt. positioned pt in bed. call light and table placed within reach. Gait Assessment Gait Gait Assistance Required: Contact Guard Assist Distance (Feet) 45 Able to Maintain Weight Bearing Status Yes During Gait Assistive Devices Assistive Device Gait Belt,Front Wheeled Walker Orthotic/Prosthetic Devices or Brace: No Gait Deviations General Gait Pattern Antalgic,Decreased Stride Length,Decreased Feet Clearance,Step-to Gait Factors Limiting Gait Function Factors Limiting Gait Function Decreased Activity Tolerance, Decreased Strength,Limited Range of Motion,Pain,Poor Balance,Poor Safety Awareness Stair Climbing Assessment Evaluation Level of Assist On Stairs Minimal Assistance Devices Stair Climbing Assistive Devices Right Railing Technique/Endurance Stair Climbing Direction Ascend and Descend Stair Climbing Technique Step to Step Number of Steps Climbed 2 Stair Climbing Set # Repetitions (reps) 1 M5 PT-IP Objective Assessments Start: 03/10/20 14:29 Freq: NEEDED Status: Active Protocol: Document 03/11/20 10:45 AB (Rec: 03/11/20 12:06 AB [email or web address]) Orientation Orientation/Cognition Level of Alertness Alert Orientation Name,Place,Situation Language Function Ability No Deficits Noted Safety Awareness Decreased Safety Awareness Memory Description Short Term Impaired Gross Range of Motion Lower Extremity ROM Assessment Within Functional Limits Strength Lower Extremity Strength Assessment Bilaterally Impaired Hip 3+/5 Knee 4-/5 Coordination Assessment Gross Coordination Gross Coordination WNL Sensation Assessment Sensation Gross Sensation WNL Muscle Tone Muscle Tone WNL Yes M6 PT-IP Treatment Start: 03/10/20 14:29 Freq: NEEDED Status: Active Protocol: Document 03/13/20 11:02 AB (Rec: 03/13/20 12:43 AB [email or web address]) Physical Therapy Treatment Education Education Provided Precautions,Safety M7 PT-IP Assessment and Plan Start: 03/10/20 14:29 Freq: NEEDED Status: Active Protocol: Document 03/13/20 11:02 AB (Rec: 03/13/20 12:43 AB [email or web address]) PT Summary Assessment and Plan Potential Rehabilitation Potential Good Summary Impairments Pain,ROM,Strength,Balance, Coordination,Sensation,Tone, Cognition,Bed Mobility, Transfers,Gait,Activity Tolerance Progress Towards Goals Slow Progress due to Pain Assessment Summary caregiver training conducted and spouse was able to assist pt safely with mobility. pt may go home when medically stable. Goals Bed Mobility Goal Standby Assistance Transfer Goal Standby Assistance,Front Wheeled Walker Gait Goal Standby Assistance,Front Wheel Walker Gait Distance 150 Other Goals up/down 3 steps using SPC/CAR ESCORT CGA Days to Meet Goals 5 Frequency of Treatment Frequency Of Treatment Twice a Day Treatment Plan Physical Therapy Treatment Plan Bed Mobility Training,Transfer Training,Gait Training, Therapeutic Exercise,Balance Retraining,Post Op Education, Discharge Planning,Hot or Cold Pack,Neuromuscular Re-ed, Coordination Retraining,Manual Therapy Recommendations To Nursing Amount of Assist Needed 1 Person Assist Discharge Recommendations PT Discharge Recommendations Home with 19/09 Assist,Home Health Transportation Needs at Discharge Private Vehicle,Wheelchair/ Cabulance
--- NOTE | 2020-03-13 13:22 | OT.IP.TRT ---
Current Diagnoses Other forms of scoliosis, lumbar region (03/10/20) Spinal stenosis, lumbar region with neurogenic claudication (03/10/20) Surgery Performed Operation Date: 03/10/20 07:45 Actual Procedures p L34, L45 Laminectomy, L45 instrumented fusion w/bone graft - Dallas Riggs MD Occupational Therapy Treatment Note M2 OT-IP Current Condition Start: 03/12/20 14:45 Freq: Status: Active Protocol: Document 03/12/20 14:45 [facility] (Rec: 03/12/20 15:20 [facility] [id number]) Occupational Therapy Current Condition Current Condition Evaluation Date 03/12/20 Treatment Diagnosis S/p L4-5 TLIF Diagnosis Onset Date 03/10/20 Post Operative Precautions Lumbar Precautions Log Roll,No Twisting,Limit Bending,Lifting Restriction of 10 lbs,Gait Belt above Incisional Area M3 OT- IP Subjective and Pain Start: 03/12/20 14:45 Freq: Status: Active Protocol: Document 03/13/20 13:46 CGR (Rec: 03/13/20 13:48 CGR [id number]) OT- Subjective Occupational Therapy Visit Type Type Administrative Note Visit Start Time 11:30 Visit Stop Time 11:46 Total Visit Minutes 16 Notes Pt just finished with caregiver training with P.T. and declines activity at this time. Discussed with the patients needs for home discharge and home safety. Will follow up tomorrow for shower per pt request.
--- NOTE | 2020-03-13 15:51 | PT-IP ANOTE ---
checked on pt and refused PT. stated that she just got back to bed and does not want to get up and stated that she is waiting for a phone call.
[2020-03-13] MEDS: diphenhydrAMINE 25 MG TABLET PO (18:35)
--- NOTE | 2020-03-13 18:57 | PC.NURSE ---
Pt medicated for back and right buttock pain as per emar. Able to mobilize self from bed to standing and ambulate with walker into bathroom to void. Able to ambulate back to bed and put self into bed utilizing log rolling technique well. Observes precautions well. C/o itching to skin all around back surrounding dressing. Skin intact with coversite dressing in place to central lower back. Noted blistering to left proximal buttock. Pt positions self onto right side in bed supported by pillows with assistance by this sports book writer. Pt refuses foot pumps and actively demonstrates ankle waving and calf pumping. Encouraged to call for needs. [facility] feels prepared to discharge to home tomorrow. [facility] spouse is physical therapist and will be assisting with care.
[2020-03-13] MEDS: SENNOSIDES 8.6 MG TABLET 17.2 MG PO (20:25)
[2020-03-13] MEDS: GABAPENTIN 300 MG CAPSULE PO (20:25)
[2020-03-13] MEDS: hydrOXYzine pamoate 25 MG CAPSULE PO (22:57)
[2020-03-14 00:23] VITALS: BP 119/54; PULSE 71; RESP 20; TEMP 36.9; O2SAT 96
[2020-03-14] MEDS: OXYCODONE IR 10 MG TABLET PO ×3 (01:07→08:30)
[2020-03-14 04:00] VITALS: BP 120/65; PULSE 77; RESP 16; O2SAT 93
[2020-03-14] MEDS: LEVOTHYROXINE 100 MCG TABLET PO (05:13)
[2020-03-14 08:00] VITALS: BP 105/75; PULSE 68; RESP 17; TEMP 36.6; O2SAT 95
[2020-03-14] MEDS: ASPIRIN EC 81 MG TABLET PO (08:28)
[2020-03-14 08:29] VITALS: BP 109/70; PULSE 64
[2020-03-14] MEDS: DOCUSATE 100 MG CAPSULE PO (08:29)
[2020-03-14] MEDS: ATORVASTATIN 20 MG TABLET 40 MG PO (08:29)
[2020-03-14] MEDS: CELECOXIB 200 MG CAPSULE PO (08:29)
[2020-03-14] MEDS: lisinopriL 10 MG TABLET PO (08:29)
[2020-03-14] MEDS: METOPROLOL ER 50 MG TABLET 200 MG PO (08:29)
[2020-03-14] MEDS: hydrOXYzine pamoate 25 MG CAPSULE PO (08:30)
--- NOTE | 2020-03-14 09:14 | PM.PNPO.1 ---
Subjective Subjective Date Patient Seen: 03/14/20 Time Patient Seen: 09:14 Interval history: Postop day 4. After a lumbar laminectomy and fusion. She is doing better today. Pain is about 3 at rest. She is much more stable getting up and moving around. Exam Vital Signs (past 8 hours): - 03/14/20 04:00 03/14/20 08:00 03/14/20 08:29 Temperature 97.8 F Pulse Rate 77 68 64 Respiratory Rate 16 17 Blood Pressure 120/65 105/75 109/70 Pulse Oximetry 93 95 Oxygen Delivery Method Room Air Oxygen Flow Rate 0 Const Orientation: alert and oriented x3 Back/Spine/Pelvis Other: Small 1 cm dry drainage on dressing. 5/5 motor both lower extremities Objective Labs Result Diagrams: 03/11/20 05:24 [facility] Medical History (Updated 02/11/20 @ 14:16 by Tanya Nino RN) Anxiety Arthritis Brain aneurysm (04/2013) Diverticulitis (~2001) Diverticulosis Easy bruisability HLD (hyperlipidemia) HTN (hypertension) Hypothyroid Lumbar stenosis with neurogenic claudication Scoliosis Surgical History (Updated 02/11/20 @ 14:17 by Tanya Nino RN) History of esophagogastroduodenoscopy (EGD) History of hysterectomy History of surgery (04/2013) Hx of appendectomy Hx of breast biopsy Social History household members: spouse Smoking Status: Former smoker alcohol intake: current Assessment & Plan Post-op Postoperative Procedures: Procedures Operation Date: 03/10/20 07:45 Actual Procedures Side Surgeon p L34, L45 Laminectomy, L45 instrumented fusion w/bone graft Dallas Riggs MD She is doing better today. Plan to discharge home. Quality VTE Deep Vein Thrombosis/Pulmonary Embolism Present on Admission: No
--- NOTE | 2020-03-14 09:15 | P.DS_ITS ---
History of Present Illness History of Present Illness Date Patient Seen: 03/14/20 Time Patient Seen: 09:15 Chief complaint: Tranlaminar Interbody Fusion/Laminotomy Narrative: 52-year-old female with pain in the back and radiation down both legs. She has been through physical therapy. Discharge Providers Provider Date of admission: 03/10/20 05:53 Discharge Date: 03/14/20 Primary care physician: Jeannette Leung MD Consults: 03/10/20 12:06 Consult to Occupational Therapy Evaluate & Treat Comment: Physician Instructions: Evaluate and treat Consult to Physical Therapy Evaluate & Treat Comment: Physician Instructions: Evaluate and Treat Discharge provider: Dallas Riggs MD Summary Hospital Course Discharge Diagnosis: Lumbar stenosis with radiculopathy Hospital Course: She was brought to the operating room on 03/10/2020 where she underwent a L3 through 5 laminectomy and L4-5 fusion TLIF. Postoperatively she was very slow to mobilize. She had significant issues with pain control that we gradually were able to convert her over to oral medications to manage this. By the date of discharge on postoperative day 4, she was finally independent with mobility. Status at Discharge Cognitive/behavioral status at discharge: oriented Functional status at discharge: uses cane/walker Overall status at discharge: patient is progressing back to baseline Exam Vital Signs (past 8 hours): - 03/14/20 04:00 03/14/20 08:00 03/14/20 08:29 Temperature 97.8 F Pulse Rate 77 68 64 Respiratory Rate 16 17 Blood Pressure 120/65 105/75 109/70 Pulse Oximetry 93 95 Oxygen Delivery Method Room Air Oxygen Flow Rate 0 Const Orientation: alert and oriented x3 Back/Spine/Pelvis Other: 1 cm dry drainage. 5/5 motor both lower extremities. Objective Labs Result Diagrams: 03/11/20 05:24 [facility] Medical History (Updated 02/11/20 @ 14:16 by Tanya Nino RN) Anxiety Arthritis Brain aneurysm (04/2013) Diverticulitis (~2001) Diverticulosis Easy bruisability HLD (hyperlipidemia) HTN (hypertension) Hypothyroid Lumbar stenosis with neurogenic claudication Scoliosis Surgical History (Updated 02/11/20 @ 14:17 by Tanya Nino RN) History of esophagogastroduodenoscopy (EGD) History of hysterectomy History of surgery (04/2013) Hx of appendectomy Hx of breast biopsy Social History household members: spouse Smoking Status: Former smoker alcohol intake: current Discharge Assessment & Plan Assessment and Plan Assessment: Lumbar stenosis now status post laminectomy and fusion Plan of Treatment: Discharge home Discharge Plan Discharge Plan Patient Disposition: Home Provider Discharge Comment: Follow-up 1.5 weeks Discharge orders & Medications Prescriptions: New diazepam 5 mg Tablet 5 mg PO Q4H PRN (Reason: Spasms) Qty: 14 RF: 0 docusate sodium [DOK] 100 mg Capsule 100 mg PO BID PRN (Reason: constipation) Qty: 40 RF: 0 oxycodone 5 mg Tablet See Rx Instructions .ROUTE .COMPLEX PRN (Reason: Pain, Moderate (4-6)) Qty: 40 RF: 0 Continued atorvastatin 40 mg Tablet 40 mg PO DAILY RF: 0 metoprolol succinate 200 mg Tablet Extended Release 24 Hr 200 mg PO DAILY RF: 0 acyclovir 400 mg Tablet 400 mg PO DAILY PRN (Reason: Cold Sores) RF: 0 acetaminophen 650 mg Tablet 1,300 mg PO DAILY RF: 0 tramadol 50 mg Tablet 50 - 100 mg PO BID PRN (Reason: Pain) RF: 0 lisinopril 10 mg Tablet 10 mg PO DAILY RF: 0 aspirin 81 mg Tablet 81 mg PO DAILY RF: 0 levothyroxine 100 mcg Capsule 100 mcg PO DAILY RF: 0 Follow up/Referrals: Jeannette Leung MD [Primary Care Provider] - Discharge Health Status Multidrug resistant organism: No MDRO Diet/Activity/Treatments Diet: Diet as Tolerated Activity: Limited bending, twisting, 10 lb maximum lifting Skin/Wound/Dressing Care Report to your healthcare provider any signs of infection, such as:: chills, fever, night sweats, increased pain, unusual drainage and unusual redness Dressing: You may shower over the dressing for the 1st 5 days after surgery. On Monday, you may remove the dressing and shower over the incision. Please replace this with a clean dressing when done. Visit Report/Discharge Packet Instructions: DI for Prescription Opioid Use, DI for Transforaminal Lumbar Interbody Fusion Stand Alone Forms: Surgery Discharge Discharge Data Primary Care Provider: Jeannette Leung Quality VTE Deep Vein Thrombosis/Pulmonary Embolism Present on Admission: No
--- NOTE | 2020-03-14 12:32 | PT-IP ANOTE ---
pt refused PT. stated that she does not want to get up and that her spouse will be coming in soon and she is going home.
--- NOTE | 2020-03-14 13:00 | OT.IPNOTE ---
Attempted to see pt today for shower. Pt states her has not yet arrived with shampoo etc. Checked back later in day and nursing states pt showered with nursing and is ready for discharge. No OT services rendered on this date.
[2020-03-14] MEDS: OXYCODONE IR 5 MG TABLET PO (13:28)
--- NOTE | 2020-03-14 15:03 | CM.DPNOTE ---
DCP Cont Home w/spouse today, patient aware and agreeable to plan, patient refused PT session this morning. Home w/outpatient f/u JW
== END 2020-03-14 13:50 | disposition home or self-care (01) | DRG 455 ==
PROVIDERS: Admitting Provider Orthopaedic Surgery; PCP Family Medicine; Referring Provider Family Medicine; Visit Provider Orthopaedic Surgery
PROC: 0SG00AJ Fusion of Lumbar Vertebral Joint with Interbody Fusion Device, Posterior Approach, Anterior Column, Open Approach (ICD-10-PCS; principal; 2020-03-10 07:45)
DX: M48.062 Spinal stenosis, lumbar region with neurogenic claudication (principal); M41.86 Other forms of scoliosis, lumbar region; E03.9 Hypothyroidism, unspecified; I10 Essential (primary) hypertension; F41.9 Anxiety disorder, unspecified; K21.9 Gastro-esophageal reflux disease without esophagitis; G89.18 Other acute postprocedural pain; M62.838 Other muscle spasm; Z20.822 Contact with and (suspected) exposure to COVID-19
CPT/HCPCS: 36415; 72100; 76000; 85014; 85018; 87635; 94762; 97162; 97165; 97530; 97535; C1776; J0330; J0595; J0690; J1100; J1170; J2060; J2250; J2274; J2405; J2704; J3010; J3410